=== PATIENT | female | born 1995 | race Caucasian/White ===

== ENCOUNTER → 2022-01-19 09:23 | Outpatient (CLI) | payer OTHER, SELFPAY ==
--- NOTE | 2022-01-19 09:25 | DI.US.S_ITS ---
PROCEDURE: US OB <= 14 WEEKS FETUS INDICATIONS: DATES OUTSIDE/PRIOR DATING DATA: Last menstrual period (LMP): November 06, 2021. LMP-based estimated date of delivery (NATIVIDAD): August 13, 2022. First dating scan (date): January 19, 2022. Estimated date of delivery (NATIVIDAD) from first dating scan: August 10, 2022. TECHNIQUE: Real-time scanning was performed of the fetus and maternal pelvic organs, with image documentation. Endovaginal scanning was also performed to better visualize the fetus and maternal ovaries. COMPARISON: None. FINDINGS: Embryo: Chestnut-rump length measures 4.2 cm, compatible with an 11 chest 8 Heart rate: 173 beats per minute Maternal organs: Ovaries not well seen. IMPRESSION: Early live single intrauterine gestation. We strive to produce accurate, complete, and clear reports of imaging services. To assist us in improving patient care, this report was composed using standard report templates and voice recognition software. Therefore, it may contain abnormal punctuation, insertions and/or omissions. Occasional wrong-word or sound-alike substitutions may occur. Though we review the report and make efforts to correct it, we do recommend that the report be read carefully in proper context to recognize any text inaccuracies. Dictated by: Gatito Ho M.D. on 01/19/2022 at 11:01 Approved by: Gatito Ho M.D. on 01/19/2022 at 11:07
== END ==
PROVIDERS: PCP Family Medicine; Referring Provider Family Medicine; Visit Provider Family Medicine
DX: Z34.81 Encounter for supervision of other normal pregnancy, first trimester (principal)
CPT/HCPCS: 76801; 76817

== ENCOUNTER → 2022-01-28 15:33 | Outpatient (CLI) | payer OTHER, SELFPAY ==
[2022-01-28 17:34] LABS: Add Manual Diff / Slide Review NO; Basophils Absolute Auto 0 /uL (0-100); Basophils Percent Auto 0.3 % (0-2); Eosinophils Absolute Auto 100 /uL (0-450); Eosinophils Percent Auto 1.1 % (2-4); Hematocrit 39.4 % (36-46); Hemoglobin 14.2 g/dL (12.0-16.0); Lymphocytes Absolute Auto 2000 /uL (1100-4500); Mean Corpuscular Hemoglobin 30.9 PG (26-34); Mean Corpuscular Volume 85.9 fL (80-100); Monocytes Absolute Auto 400 /uL (0-900); Monocytes Percent Auto 5.3 % (3-14); Neutrophils Absolute Auto 5800 /uL (1500-7000); Neutrophils Percent Auto 69.3 % (50-75); Platelet Count 268 X10^3/uL (150-400); Red Blood Cell Count 4.59 X10^6/uL (4.0-5.2); Red Cell Distribution Width 13.5 % (11.6-14.8); White Blood Cell Count 8.3 X10^3/uL (4.5-11.0)
[2022-01-28 19:24] LABS: Appearance Urine UA CLEAR; Bilirubin Urine UA NEGATIVE (NEGATIVE); Color Urine UA YELLOW; Glucose Urine UA NEGATIVE (Negative); Ketones Urine UA TRACE (NEGATIVE); Leukocyte Esterase Urine UA NEGATIVE (NEGATIVE); Nitrite Urine UA NEGATIVE (Negative); Occult Blood Urine UA NEGATIVE (Negative); Protein Urine UA NEGATIVE (Negative); Specific Gravity Urine UA 1.025 (1.000-1.035); Urobilinogen Urine UA 0.2 E.U./dL (0.2)
[2022-01-28 19:35] LABS: pH Urine UA 5.5 (4.5-8.0)
[2022-01-29 06:11] LABS: RPR Screen Non Reactive (Non Reactive)
[2022-01-29 07:22] LABS: Varicella IgG Antibody 202 index (Immune >165)
[2022-01-31 17:12] LABS: Hepatitis B Surface Antigen NEGATIVE s/c (NEGATIVE); Rubella Antibody IgG 14.6 IU/mL (>15)
[2022-01-31 17:59] LABS: HIV 1 & 2 Ab/Ag 4th Gen Combo NEGATIVE (NEGATIVE); Hep C Virus Ab w/Reflex Quant NEGATIVE s/c (NEGATIVE)
== END ==
PROVIDERS: PCP Family Medicine; Referring Provider Family Medicine; Visit Provider Family Medicine
DX: Z34.80 Encounter for supervision of other normal pregnancy, unspecified trimester (principal)
CPT/HCPCS: 36415; 80055; 81003; 86787; 86803; 86850; 86900; 86901; 87086; 87389

== ENCOUNTER → 2022-03-18 08:03 | Outpatient (CLI) | payer OTHER, SELFPAY ==
--- NOTE | 2022-03-18 08:04 | DI.US.S_ITS ---
PROCEDURE: US OB >= 14 WEEKS FETUS INDICATIONS: ANATOMY OUTSIDE/PRIOR DATING DATA: Last menstrual period (LMP): November 06, 2021. LMP-based estimated date of delivery (NAT[facility]IDAD): August 13, 2022. First dating scan (date and location): January 19, 2022. [facility]. Estimated date of delivery (NAT[facility]AD) from first dating scan: August 10, 2022. TECHNIQUE: Real-time scanning was performed of the fetus, with image documentation and biometric measurements. Endovaginal scanning: Not performed COMPARISON: None. FINDINGS: General: A single living intrauterine gestation is present. Presentation: Vertex. Placenta: Placental position is posterior , without previa. Amniotic fluid index: 10.1 cm, normal range is 5-24 cm. heart rate: 158 beats per minute. Maternal cervical canal: 5.4 cm long. Normal lower limit is 2.5 cm. biometrics: Biparietal diameter: 4.4 cm, 19 weeks, 3 days Head circumference: 16.6 cm, 19 weeks, 2 days Abdominal circumference: 13.9 cm, 19 weeks, 2 days Femur length: 3.0 cm, 19 weeks, 3 days Clinically estimated gestational age: 19 weeks 2 days Composite gestational age from present scan: 19 weeks 3 days Estimated weight and percentile: 287 g, 49% Anatomic survey: Neuro: Ventricles are non-dilated at less than 10 mm. Cisterna magna is normal at 3-11 mm. Cerebellum is normal in size and morphology. Nuchal skin fold: Normal at less than 6 mm between 14-21 weeks gestational age. Face: Nose and lips, facial profile are normal. Spine: No evidence for spina bifida. Heart: 4-chambered heart is present, with normal ventricular outflow tracts. Diaphragm: Diaphragm is intact. Stomach: Left-sided stomach is present. Kidneys: No hydronephrosis. Normal is less than 5 mm in 2nd trimester, less than 7 mm in 3rd trimester. Cord: 3-vessel cord has orthotopic insertion. Bladder: Normal in size. Extremities: All 4 extremities identified. IMPRESSION: 1. Single live intrauterine gestation with a composite gestational age of 19 weeks 3 days which is concordant with dates by initial scan. 2. No sonographic anatomic abnormalities. We strive to produce accurate, complete, and clear reports of imaging services. To assist us in improving patient care, this report was composed using standard report templates and voice recognition software. Therefore, it may contain abnormal punctuation, insertions and/or omissions. Occasional wrong-word or sound-alike substitutions may occur. Though we review the report and make efforts to correct it, we do recommend that the report be read carefully in proper context to recognize any text inaccuracies. Dictated by: Gisselle Thomas M.D. on 03/18/2022 at 10:24 Approved by: Gisselle Thomas M.D. on 03/18/2022 at 10:37
== END ==
PROVIDERS: PCP Family Medicine; Referring Provider Family Medicine; Visit Provider Family Medicine
DX: Z36.89 Encounter for other specified antenatal screening (principal); Z3A.19 19 weeks gestation of pregnancy
CPT/HCPCS: 76811

== ENCOUNTER → 2022-04-25 10:12 | Outpatient (CLI) | payer OTHER, SELFPAY | PROVIDERS: PCP Family Medicine; Visit Provider Family Medicine | DX: N89.8 Other specified noninflammatory disorders of vagina (principal); O26.892 Other specified pregnancy related conditions, second trimester; Z3A.24 24 weeks gestation of pregnancy | CPT/HCPCS: 87210 ==

== ENCOUNTER 2022-08-01 10:30 | Outpatient (RCR) | payer OTHER, SELFPAY ==
--- NOTE | 2022-06-09 20:00 | PT.OIE ---
Current Diagnoses Stiffness of unspecified hip, not elsewhere classified (06/09/22) Low back pain, unspecified (06/09/22) Stress incontinence (female) (male) (06/09/22) Lower abdominal pain, unspecified (06/09/22) Past Medical History (Last Reviewed 04/25/22 @ 11:45 by Marlin Montez DO) Headache Migraines (~2011) Past Surgical History (Last Reviewed 04/25/22 @ 11:45 by Marlin Montez DO) Anesthesia History of oral surgery (~2008) Visit Care Team Role Provider Type Camila Plata DO Family Provider Non-Staff Primary Care Provider Specialty: Family Practice Address: [address] [facility], [place], [address] Email: Estee Barroso MD Attending Provider Physician Referring Provider Specialty: Family Practice Address: [address] [place] [address], [id number] Email: [email or web address] Physical Therapy Initial Evaluation PT-OP-A Visit Information Start: 06/02/22 17:51 Freq: Status: Active Protocol: Document 06/09/22 08:14 LRN (Rec: 06/09/22 09:05 LRN [id number]) Out-Patient Physical Therapy Visit Information Visit Information Visit Type Initial Evaluation Visit Note Pre-auth 6 visits to date. Visit Start Time 08:15 Visit Stop Time 09:00 Total Visit Minutes 45 Visit Number 1/6 Evaluation Information Evaluation Date 06/09/22 Precautions Precautions 7 months . PT-OP-B Current Condition Start: 06/02/22 17:51 Freq: Status: Active Protocol: Document 06/09/22 08:14 LRN (Rec: 06/09/22 09:05 LRN [id number]) Current Condition History of Current Condition Onset Date 3 months ago, was 4 months with 2nd child Current Complaints Urinary incontinence with sneezing. History of Current Condition Pt developed stress incontinence during 2nd pregancy 4 months ago ( currently 7 mos , 30 weeks). Pt was in [place] when condition started and it was not felt she needed PT. Pt returned to [facility] (9 months ago), then 2 months later became with 2nd . Pt spouse is in the . Pt complaines of feeling a drop of urine with sneezing or activity. She does not wear pads and is able to identify when having urinary leakage. She currently manages by squeezing her legs together to prevent leakage. Additionally she reports pain in the R anterior hip region that she reports feels liike round lig pain when baby moves. Her pain is sharp in nature. She is trying to stay active and does Pilates 2x/week on the floor. Prior Treatments and Tests None Developmental History Developmental History Pt had vaginal of her son, first 15 months ago. She reports no complications. Treatment Goals Patient/Caregiver Goals Pt goal is to not leak when sneezing. Decrease her LBP and anterior pelvic/abdominal pain. Prior Functional Status Baseline Function- ADL's Independent Baseline Function- Mobility Independent Baseline Function- Other No urinary leakage before or after her first . Current Functional Impairments (Reported) Functional Limitations- ADL's 7 months . Urinary leakge with strong cough or sneeze, and vigorous activity. Feeling of pelvic heaviness/ pressure and falling out with standing. Trigger of running water. 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 Has 3-4 hrs of sitting and then is on social media. PT-OP-C Subjective Start: 06/02/22 17:51 Freq: Status: Active Protocol: Document 06/09/22 08:14 LRN (Rec: 06/09/22 09:05 LRN [id number]) Patient Questionnaires Pelvic Pain and Urgency/Frequency Patient Symptom Scale Pelvic Pain Score 11 OP-PT Pain Assessment Pain Assessment Grid Paper Pain Assessment Grid Completed Yes Location Low back and buttocks Pain Location Details Low back and buttocks Description Aching Anterior lower abdomen Pain Location Details Lower abdomen at the level of the pubic bone and ASIS Description Sharp Description- Other With certain movements Frequency Intermittent PT-OP-I Pelvic Floor Start: 06/02/22 17:51 Freq: Status: Active Protocol: Document 06/09/22 08:14 LRN (Rec: 06/09/22 09:05 LRN [id number]) Pelvic Floor Assessment Urine Urinary Symptoms Dribbling After Urination,Pain Other Urinary Symptoms Few time in past few weeks dribbling after urination. Having round ligament pain and low back pain extending from tailbone to lateral hips R>L. Mainly notices it when picking up 15 month old son Ibrahima. Leakage Size Small Leakage Cause Sneeze Voiding Frequency 12+/day Nocturia 1-2x Pads Used In 24 Hours None Bowel Bowel Surgery No Bowel Movement Frequency 2-3 Craven Stool Chart Type 1-7 4 Craven Stool Chart Comments Stool types 4-5 PT-OP-J Posture/Palpation/Skin Start: 06/02/22 17:51 Freq: Status: Active Protocol: Document 06/09/22 08:14 LRN (Rec: 06/09/22 09:05 LRN [id number]) Posture Evaluation Position Standing Head/C-Spine Posture Neutral Position T-Spine Posture Neutral L-Spine Posture Increased Lordosis,Shifted Left Pelvis Posture Anteriorly Tilted Weight Distribution Balanced Knee Posture (L) Genu Valgus,(R) Genu Valgus Ankle/Foot Posture (R) Calcaneal Eversion Foot Arch (R) Low Arch Comments Posture Comments Wide stance. Palpation Assessment Location Lower abdomen Palpation Location Lower abdomen above pubic bone Palpation Findings Tenderness Pubic Symphysis Palpation Location Pubic Symphysis Palpation Findings Tenderness Palpation Details Mild separation noted. External PF Palpation Location External PF Palpation Details No tenderness posterior at coccyx and around vagina and anus. PT-OP-K Range of Motion Start: 06/02/22 17:51 Freq: Status: Active Protocol: Document 06/09/22 08:14 LRN (Rec: 06/09/22 09:05 LRN [id number]) Lumbar Spine Range of Motion Lumbar Spine Active Degrees Testing Position Standing Flexion 80 Extension 10 Rotation Left 20 Rotation Right 10 Lateral Flexion Left 22 Lateral Flexion Right 18 Comments Trunk flex is 80 deg's with 40 deg's hip flexion Trunk ext is 10 deg's with 10 deg's hip ext. Hip Goniometric Range of Motion Hip Right Passive Testing Position Supine Straight Leg Raise 80 Abduction 50 Internal Rotation 45 External Rotation 85 Left Passive Testing Position Supine Straight Leg Raise 68 Abduction 50 Internal Rotation 70 External Rotation 75 PT-OP-M Strength Start: 06/02/22 17:51 Freq: Status: Active Protocol: Document 06/09/22 08:14 LRN (Rec: 06/09/22 09:05 LRN [id number]) Trunk Strength Trunk Manual Muscle Testing Testing Position Supine Core Stabilization Pt is not able to maintain core stability with testing of hip flexion strength, demonstrating decreased trunk rot strength/stability. Hip Strength Hip Manual Muscle Testing Right Adduction 3 Fair Comments Strength is 5/5 except as indicated above. Deferred testing of extension due to pillow not available. Left Flexion (L2) 4 Good Comments Strength is 5/5 except as indicated above. Deferred testing of extension due to pillow not available. PT-OP-Q Treatments Start: 06/02/22 17:51 Freq: Status: Active Protocol: Document 06/09/22 08:14 LRN (Rec: 06/09/22 09:05 LRN [id number]) Manual Therapy Treatment Soft Tissue Mobilization Iliopsoas Body Location R iliopsoas: Approximation of L3-5 & Lesser tubercle of femur Mobilization Type Myofascial Release,Sustained Pressure Body Position Supine Self-Care/Home Management Treatment Education Other Education Discussed results of evaluation, goals, and plan of care (POC). Pt agreeable to goals and POC. PT-OP-T Assessment and Plan Start: 06/02/22 17:51 Freq: Status: Active Protocol: Document 06/09/22 08:14 LRN (Rec: 06/09/22 09:05 LRN [id number]) Physical Therapy Assessment Rehab Potential Rehabilitation Potential Good Evaluation Complexity Number of Personal Factors/Comorbidities 1-2 Number of Body Systems Impaired 4 or More Clinical Presentation at Evaluation Evolving Impairments Impairments Activity Tolerance,Pain, Posture,ROM,Soft Tissue Mobility,Strength,Transfers Goals Four Impairment Pain in LB and hips, R>L Short Term Goal (STG) Pt will demonstrate symmetry and balance in her Illiosacral region. STG Duration 07/08/22 Senior Living Goal (LTG) Decrease reported pain in LB and hips. LTG Duration 09/07/22 Three Impairment Decreased core stability Impairment Pt is not able to maintain a stable core with movement of her LE's, priimarily with hip flex & extension. Short Term Goal (STG) Pt will be educated in pelvic stabilization ex's with a decrease in anterior abdominal /pubic pain. STG Duration 07/08/22 Process Equipment Operator Goal (LTG) Pt will be able to maintain a stable core with lifting of her legs against gravity. LTG Duration 09/07/22 Two Impairment Urinary stress incontinence Impairment Urinary incontinence with strong cough or sneeze, and vigorous activity. Short Term Goal (STG) Pt will be educated in Kegel ex's in isolation of substitute muscles and with aggrevator activities. STG Duration 06/24/22 Senior Living Goal (LTG) Pt will be able to maintain continence with a strong cough , sneeze or with appropriate vigorous activity. LTG Duration 09/07/22 One Impairment Pt lacks appropriate self care knowledge and HEP. Short Term Goal (STG) Pt will be educated in postural changes associated with and proper body mechanics for ADLS. STG Duration 07/01/22 Senior Living Goal (LTG) Pt will be educated in HEP of core stab, and mobility exercises to help her manage her ongoing . LTG Duration 09/07/22 Assessment Summary Assessment Pt presents with insidious onset of stress incontinence 7 months into her 2nd . She is having increased frequency of urination and urinary leakage with with strong cough or sneeze, and vigorous activity. She appears to be drinking enough fluids and is having normal stool types that can sometimes be more loose in nature. She does take magnesium that is probably helping her to maintain a good stool type 4. She is also experiencing low back pain and anterior abdominal/symphysis pubis pain that appears to be associated to her current , contributing to her PF dysfunction and will most likely hinder her rehabilitation progress; therefore it will be important to address and treat her LBP and abdominal pain. She demonatrates poor body mechanics with movements, especially with lifting her 15 month old son. She is also beginning to show postural changes associated to her that has potential to hinder her rehab progress as well; therefore it is expected that the pt will need further visits past her approved 6 visits to address her changes associated with her progressing in order to stabilize her PF. Pt will benefit from skilled physical therapy to improve her level of continence, address her abdominal and low back pain to decrease her PF dysfunction and eduacate the patient in proper body mechanics and posture to minimize core dysfunction and pain for daily activities. Physical Therapy Plan Frequency and Duration Frequency of Treatment 1x/Week Plan of Care Start Date 06/09/22 Plan of Care End Date 09/07/22 Therapeutic Interventions Therapeutic Interventions Home Exercise Program,Joint Mobilizations,Manual Therapy, Neuromuscular Re-education, Patient/Caregiver Education, Self-Care/Home Management,Soft Tissue Mobilization,Taping, Therapeutic Activities, Therapeutic Exercises Modalities Cold Pack/Ice Massage Next Visit Focus/Plan Next Note Type Treatment Note Next Visit Plan Pt to complete pain rating for back, abdomen and hips. I/S pt in trunk stretch for L lateral shift. Assess Hip Ext strength HEP: Resisted hip AB for pub pain. Core Stab. General stretches, & hip stretches (IR-R, ER & Hamstring-L). Strengthening R hip AD (if not painful) and L hip flexion. Pt education in posture expectations & proper body mechanics. Manual therapy: sacral balancing, Pub symphysis reduction, tight abdominals on R side. Modality: Ice as needed.
--- NOTE | 2022-06-20 16:30 | PT.OTN ---
Current Diagnoses Stiffness of unspecified hip, not elsewhere classified (06/20/22) Low back pain, unspecified (06/20/22) Stress incontinence (female) (male) (06/20/22) Lower abdominal pain, unspecified (06/20/22) Physical Therapy Treatment Note PT-OP-A Visit Information Start: 06/02/22 17:51 Freq: Status: Active Protocol: Document 06/20/22 15:15 LRN (Rec: 06/20/22 16:25 LRN [id number]) Out-Patient Physical Therapy Visit Information Visit Information Visit Type Treatment Note Visit Note Pre-auth 6 visits to date. Visit Start Time 15:15 Visit Stop Time 16:04 Total Visit Minutes 49 Visit Number 2/ Evaluation Information Evaluation Date 06/09/22 Precautions Precautions 7 months . PT-OP-B Current Condition Start: 06/02/22 17:51 Freq: Status: Active Protocol: Document 06/09/22 08:14 LRN (Rec: 06/09/22 09:05 LRN [id number]) Current Condition History of Current Condition Onset Date 3 months ago, was 4 months with 2nd child Current Complaints Urinary incontinence with sneezing. History of Current Condition Pt developed stress incontinence during 2nd pregancy 4 months ago ( currently 7 mos , 30 weeks). Pt was in [place] when condition started and it was not felt she needed PT. Pt returned to [facility] (9 months ago), then 2 months later became with 2nd . Pt spouse is in the . Pt complaines of feeling a drop of urine with sneezing or activity. She does not wear pads and is able to identify when having urinary leakage. She currently manages by squeezing her legs together to prevent leakage. Additionally she reports pain in the R anterior hip region that she reports feels liike round lig pain when baby moves. Her pain is sharp in nature. She is trying to stay active and does Pilates 2x/week on the floor. Prior Treatments and Tests None Developmental History Developmental History Pt had vaginal of her son, first 15 months ago. She reports no complications. Treatment Goals Patient/Caregiver Goals Pt goal is to not leak when sneezing. Decrease her LBP and anterior pelvic/abdominal pain. Prior Functional Status Baseline Function- ADL's Independent Baseline Function- Mobility Independent Baseline Function- Other No urinary leakage before or after her first . Current Functional Impairments (Reported) Functional Limitations- ADL's 7 months . Urinary leakge with strong cough or sneeze, and vigorous activity. Feeling of pelvic heaviness/ pressure and falling out with standing. Trigger of running water. 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 Has 3-4 hrs of sitting and then is on social media. PT-OP-C Subjective Start: 06/02/22 17:51 Freq: Status: Active Protocol: Document 06/20/22 15:15 LRN (Rec: 06/20/22 16:25 LRN [id number]) OP-PT Subjective Patient Comments Patient Comments No change. Anterior pelvic/hip pain is 3/10, posterior tailbone pain is 6/10. Saw marine underwriter and her baby's head was lower left and her kicking feet is in the lower right. Today pain in the R gluteal region. PT-OP-I Pelvic Floor Start: 06/02/22 17:51 Freq: Status: Active Protocol: Document 06/09/22 08:14 LRN (Rec: 06/09/22 09:05 LRN [id number]) Pelvic Floor Assessment Urine Urinary Symptoms Dribbling After Urination,Pain Other Urinary Symptoms Few time in past few weeks dribbling after urination. Having round ligament pain and low back pain extending from tailbone to lateral hips R>L. Mainly notices it when picking up 15 month old son Ibrahima. Leakage Size Small Leakage Cause Sneeze Voiding Frequency 12+/day Nocturia 1-2x Pads Used In 24 Hours None Bowel Bowel Surgery No Bowel Movement Frequency 2-3 [place] Stool Chart Type 1-7 4 [place] Stool Chart Comments Stool types 4-5 PT-OP-J Posture/Palpation/Skin Start: 06/02/22 17:51 Freq: Status: Active Protocol: Document 06/09/22 08:14 LRN (Rec: 06/09/22 09:05 LRN [id number]) Posture Evaluation Position Standing Head/C-Spine Posture Neutral Position T-Spine Posture Neutral L-Spine Posture Increased Lordosis,Shifted Left Pelvis Posture Anteriorly Tilted Weight Distribution Balanced Knee Posture (L) Genu Valgus,(R) Genu Valgus Ankle/Foot Posture (R) Calcaneal Eversion Foot Arch (R) Low Arch Comments Posture Comments Wide stance. Palpation Assessment Location Lower abdomen Palpation Location Lower abdomen above pubic bone Palpation Findings Tenderness Pubic Symphysis Palpation Location Pubic Symphysis Palpation Findings Tenderness Palpation Details Mild separation noted. External PF Palpation Location External PF Palpation Details No tenderness posterior at coccyx and around vagina and anus. PT-OP-K Range of Motion Start: 06/02/22 17:51 Freq: Status: Active Protocol: Document 06/09/22 08:14 LRN (Rec: 06/09/22 09:05 LRN [id number]) Lumbar Spine Range of Motion Lumbar Spine Active Degrees Testing Position Standing Flexion 80 Extension 10 Rotation Left 20 Rotation Right 10 Lateral Flexion Left 22 Lateral Flexion Right 18 Comments Trunk flex is 80 deg's with 40 deg's hip flexion Trunk ext is 10 deg's with 10 deg's hip ext. Hip Goniometric Range of Motion Hip Right Passive Testing Position Supine Straight Leg Raise 80 Abduction 50 Internal Rotation 45 External Rotation 85 Left Passive Testing Position Supine Straight Leg Raise 68 Abduction 50 Internal Rotation 70 External Rotation 75 PT-OP-M Strength Start: 06/02/22 17:51 Freq: Status: Active Protocol: Document 06/09/22 08:14 LRN (Rec: 06/09/22 09:05 LRN [id number]) Trunk Strength Trunk Manual Muscle Testing Testing Position Supine Core Stabilization Pt is not able to maintain core stability with testing of hip flexion strength, demonstrating decreased trunk rot strength/stability. Hip Strength Hip Manual Muscle Testing Right Adduction 3 Fair Comments Strength is 5/5 except as indicated above. Deferred testing of extension due to pillow not available. Left Flexion (L2) 4 Good Comments Strength is 5/5 except as indicated above. Deferred testing of extension due to pillow not available. PT-OP-Q Treatments Start: 06/02/22 17:51 Freq: Status: Active Protocol: Document 06/20/22 15:15 LRN (Rec: 06/20/22 16:25 LRN [id number]) Therapeutic Exercises Supine Exercises BKFO Supine Exercise Name BKFO - HEP Side bilateral Equipment Used Lev 2 Reps/Minutes 15x LE roll outs Supine Exercise Name LE Roll out>in to neutral - HEP Side bilateral Reps/Minutes 15x Comments Cuing to keep from doing active AD/IR Standing Exercises Wall squats Standing Exercise Name Wall squats - HEP Reps/Minutes 10x Comments Extra time taken to determine max positioning/mvmt Other Exercises 4 pt Cat/Camel Other Exercise Name Cat/Camel - HEP Reps/Minutes 10x Comments Extra time for training to tuck tailbone when arching 4 pt TA Other Exercise Name TA tightening - HEP Reps/Minutes 5SH x 10 Comments Extra time taken to cue for neutral spine during TA contraction Manual Therapy Treatment Soft Tissue Mobilization Low back Body Location QL, Upper gluteals, Piriformis Mobilization Type Strumming,Trigger Point Release Intensity/Depth Moderate Body Position Prone on Pillow Comments Tight on R side. Pop heard as pt was getting out of the position, pt reported felt good. Self-Care/Home Management Treatment Education Patient Education Posture Other Education Pt education in posture expectations, proper body mechanics with transfers and ADLs to include lifting son, reaching for toys on ground and holding son. Handouts issued for changes in posture with , ADLs. Reviewed anatomy and location of TA and PF muscles and used model to educate pt regarding Pubic Symphysis and how posturing (hips in wide AB) can effect stability of Pubic symphysis. Activities Self-Care/Home Management Activities Issued & reviewed HEP: Cat/ Camel, 4 pt TA tightening, Wall squats with TB around knee for hip ER, I/S in Supine BKFO with TB resistance , and roll in (to neutral)/ outs. Issued Lev 2 TB. PT-OP-T Assessment and Plan Start: 06/02/22 17:51 Freq: Status: Active Protocol: Document 06/20/22 15:15 LRN (Rec: 06/20/22 16:25 LRN [id number]) Physical Therapy Assessment Goals Four Impairment Pain in LB and hips, R>L Short Term Goal (STG) Pt will demonstrate symmetry and balance in her Illiosacral region. STG Duration 07/08/22 Usp Goal (LTG) Decrease reported pain in LB and hips. LTG Duration 09/07/22 Three Impairment Decreased core stability Impairment Pt is not able to maintain a stable core with movement of her LE's, priimarily with hip flex & extension. Short Term Goal (STG) Pt will be educated in pelvic stabilization ex's with a decrease in anterior abdominal /pubic pain. 06/20/22: Started 4 pt TA tightening and resisted BKFO strengthening. STG Duration 07/08/22 (06/20/22: Progressed ) National Account Executive Goal (LTG) Pt will be able to maintain a stable core with lifting of her legs against gravity. LTG Duration 09/07/22 Two Impairment Urinary stress incontinence Impairment Urinary incontinence with strong cough or sneeze, and vigorous activity. Short Term Goal (STG) Pt will be educated in Kegel ex's in isolation of substitute muscles and with aggrevator activities. STG Duration 06/24/22 Usp Goal (LTG) Pt will be able to maintain continence with a strong cough , sneeze or with appropriate vigorous activity. LTG Duration 09/07/22 One Impairment Pt lacks appropriate self care knowledge and HEP. Short Term Goal (STG) Pt will be educated in postural changes associated with and proper body mechanics for ADLS. STG Duration 07/01/22 (06/20/22: MET GOAL) National Account Executive Goal (LTG) Pt will be educated in HEP of core stab, and mobility exercises to help her manage her ongoing . LTG Duration 09/07/22 (06/20/22: Progressed ) Assessment Summary Assessment Pt with stress urinary incontinence, 4 mos with 2nd child, pubic and SIJ pain. Pt may have self mobilized sacrum when coming out of prone on pregancy position. Pt needed cuing for TA tightening prior to transfers. Pt's posture in standing is with trunk shift to right today, possibly due to shifting of baby. Prone on pillow, sacrum is R rotated/L Sidebent (elevated R side), corrected rotation after STM. Physical Therapy Plan Frequency and Duration Frequency of Treatment 1x/Week Plan of Care Start Date 06/09/22 Plan of Care End Date 09/07/22 Next Visit Focus/Plan Next Note Type Treatment Note Next Visit Plan Assess Hip Ext strength HEP: Review: Resisted supine hip AB(BKFO) for pub pain and TA tightening. Progress Core Stab. Add general stretches, & hip stretches (IR -R, ER & Hamstring-L). Strengthening R hip AD (if not painful) and L hip flexion. Manual therapy: sacral balancing, Pub symphysis reduction, tight abdominals on R side. Modality: Ice as needed.
--- NOTE | 2022-07-05 17:28 | PT.OTN ---
Current Diagnoses Stiffness of unspecified hip, not elsewhere classified (07/05/22) Low back pain, unspecified (07/05/22) Stress incontinence (female) (male) (07/05/22) Lower abdominal pain, unspecified (07/05/22) Physical Therapy Treatment Note PT-OP-A Visit Information Start: 06/02/22 17:51 Freq: Status: Active Protocol: Document 07/05/22 08:11 LRN (Rec: 07/05/22 09:02 LRN [id number]) Out-Patient Physical Therapy Visit Information Visit Information Visit Type Treatment Note Visit Note Pre-auth 6 visits Visit Start Time 08:15 Visit Stop Time 09:01 Total Visit Minutes 45 Visit Number 3/ Evaluation Information Evaluation Date 06/09/22 Precautions Precautions 7 months on 06/09/22. PT-OP-B Current Condition Start: 06/02/22 17:51 Freq: Status: Active Protocol: Document 06/09/22 08:14 LRN (Rec: 06/09/22 09:05 LRN [id number]) Current Condition History of Current Condition Onset Date 3 months ago, was 4 months with 2nd child Current Complaints Urinary incontinence with sneezing. History of Current Condition Pt developed stress incontinence during 2nd pregancy 4 months ago ( currently 7 mos , 30 weeks). Pt was in [place] when condition started and it was not felt she needed PT. Pt returned to [facility] (9 months ago), then 2 months later became with 2nd . Pt spouse is in the . Pt complaines of feeling a drop of urine with sneezing or activity. She does not wear pads and is able to identify when having urinary leakage. She currently manages by squeezing her legs together to prevent leakage. Additionally she reports pain in the R anterior hip region that she reports feels liike round lig pain when baby moves. Her pain is sharp in nature. She is trying to stay active and does Pilates 2x/week on the floor. Prior Treatments and Tests None Developmental History Developmental History Pt had vaginal of her son, first 15 months ago. She reports no complications. Treatment Goals Patient/Caregiver Goals Pt goal is to not leak when sneezing. Decrease her LBP and anterior pelvic/abdominal pain. Prior Functional Status Baseline Function- ADL's Independent Baseline Function- Mobility Independent Baseline Function- Other No urinary leakage before or after her first . Current Functional Impairments (Reported) Functional Limitations- ADL's 7 months . Urinary leakge with strong cough or sneeze, and vigorous activity. Feeling of pelvic heaviness/ pressure and falling out with standing. Trigger of running water. 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 Has 3-4 hrs of sitting and then is on social media. PT-OP-C Subjective Start: 06/02/22 17:51 Freq: Status: Active Protocol: Document 07/05/22 08:11 LRN (Rec: 07/05/22 09:02 LRN [id number]) OP-PT Subjective Patient Comments Patient Comments States she hasn't noticed her sciatic pain as much, not as often, but when it does come on it is as painful as usual. 35 weeks gestation in 3 days. Having a little pubic pain. Pain with sciatica when moving after getting up from sitting for awhile. Round lig pain with walking. PT-OP-I Pelvic Floor Start: 06/02/22 17:51 Freq: Status: Active Protocol: Document 06/09/22 08:14 LRN (Rec: 06/09/22 09:05 LRN [id number]) Pelvic Floor Assessment Urine Urinary Symptoms Dribbling After Urination,Pain Other Urinary Symptoms Few time in past few weeks dribbling after urination. Having round ligament pain and low back pain extending from tailbone to lateral hips R>L. Mainly notices it when picking up 15 month old son Ibrahima. Leakage Size Small Leakage Cause Sneeze Voiding Frequency 12+/day Nocturia 1-2x Pads Used In 24 Hours None Bowel Bowel Surgery No Bowel Movement Frequency 2-3 [place] Stool Chart Type 1-7 4 [place] Stool Chart Comments Stool types 4-5 PT-OP-J Posture/Palpation/Skin Start: 06/02/22 17:51 Freq: Status: Active Protocol: Document 06/09/22 08:14 LRN (Rec: 06/09/22 09:05 LRN [id number]) Posture Evaluation Position Standing Head/C-Spine Posture Neutral Position T-Spine Posture Neutral L-Spine Posture Increased Lordosis,Shifted Left Pelvis Posture Anteriorly Tilted Weight Distribution Balanced Knee Posture (L) Genu Valgus,(R) Genu Valgus Ankle/Foot Posture (R) Calcaneal Eversion Foot Arch (R) Low Arch Comments Posture Comments Wide stance. Palpation Assessment Location Lower abdomen Palpation Location Lower abdomen above pubic bone Palpation Findings Tenderness Pubic Symphysis Palpation Location Pubic Symphysis Palpation Findings Tenderness Palpation Details Mild separation noted. External PF Palpation Location External PF Palpation Details No tenderness posterior at coccyx and around vagina and anus. PT-OP-K Range of Motion Start: 06/02/22 17:51 Freq: Status: Active Protocol: Document 06/09/22 08:14 LRN (Rec: 06/09/22 09:05 LRN [id number]) Lumbar Spine Range of Motion Lumbar Spine Active Degrees Testing Position Standing Flexion 80 Extension 10 Rotation Left 20 Rotation Right 10 Lateral Flexion Left 22 Lateral Flexion Right 18 Comments Trunk flex is 80 deg's with 40 deg's hip flexion Trunk ext is 10 deg's with 10 deg's hip ext. Hip Goniometric Range of Motion Hip Right Passive Testing Position Supine Straight Leg Raise 80 Abduction 50 Internal Rotation 45 External Rotation 85 Left Passive Testing Position Supine Straight Leg Raise 68 Abduction 50 Internal Rotation 70 External Rotation 75 PT-OP-M Strength Start: 06/02/22 17:51 Freq: Status: Active Protocol: Document 06/09/22 08:14 LRN (Rec: 06/09/22 09:05 LRN [id number]) Trunk Strength Trunk Manual Muscle Testing Testing Position Supine Core Stabilization Pt is not able to maintain core stability with testing of hip flexion strength, demonstrating decreased trunk rot strength/stability. Hip Strength Hip Manual Muscle Testing Right Adduction 3 Fair Comments Strength is 5/5 except as indicated above. Deferred testing of extension due to pillow not available. Left Flexion (L2) 4 Good Comments Strength is 5/5 except as indicated above. Deferred testing of extension due to pillow not available. PT-OP-Q Treatments Start: 06/02/22 17:51 Freq: Status: Active Protocol: Document 07/05/22 08:11 LRN (Rec: 07/05/22 09:02 LRN [id number]) Therapeutic Exercises Supine Exercises LE roll outs Supine Exercise Name BKFO position: LE Roll out/in w/TA tight and PF contraction - HEP Side bilateral Reps/Minutes 15x Comments Cuing for coordination of breathing/PF >< and active AD/ IR Sidelying Exercises Aggrevator training Sidelying Exercise Name PF >< before cough Side bilateral Reps/Minutes 5x each side Clamshell Sidelying Exercise Name Clamshell with TA/PF/breathing contraction Side bilateral Reps/Minutes 15x Comments Cuing to coordinate PF/ breathing. Sitting Exercises Hip ER stretch Sitting Exercise Name Fig 4 stretch Side bilateral Reps/Minutes 60 SH x 1 each Resisted BKFO Sitting Exercise Name Resisted Vik BKFO Reps/Minutes 15 x 2 Comments Cuing to Tighten TA TA tightening Sitting Exercise Name TA tightening Reps/Minutes 10SH x 10 Standing Exercises Wall squats Standing Exercise Name Wall squats - HEP Reps/Minutes 15x 2 Comments Extra time taken to determine proper positioning/mvmt. cuing for hip AB Other Exercises Child's pose Other Exercise Name Child's Pose w/knees together Reps/Minutes x 1 4 pt Cat/Camel Other Exercise Name Cat/Camel - HEP Reps/Minutes 10x Comments Extra time for training to tuck tailbone when arching 4 pt TA Other Exercise Name TA tightening - HEP Reps/Minutes 10SH x 10 Comments Extra time taken to cue for neutral spine during TA contraction Manual Therapy Treatment Soft Tissue Mobilization Sacral balancing Body Location Sacral balancing (PA L sacral sulcus & TRAVON, L sacral shear, inferior mob) Mobilization Type Myofascial Release,Sustained Pressure Intensity/Depth Moderate Body Position Supine Self-Care/Home Management Treatment Education Other Education Educated pt in sitting posture to limit having her toddler between knees, but to the side of legs. PT-OP-T Assessment and Plan Start: 06/02/22 17:51 Freq: Status: Active Protocol: Document 07/05/22 08:11 LRN (Rec: 07/05/22 09:02 LRN [id number]) Physical Therapy Assessment Goals Four Impairment Pain in LB and hips, R>L Short Term Goal (STG) Pt will demonstrate symmetry and balance in her Illiosacral region. 07/05/22: Sacrum in L rotation as assessed in 4-pt. STG Duration 07/08/22 Detention Goal (LTG) Decrease reported pain in LB and hips. 07/05/22: Pt hasn't noticed her sciatic pain as much, not as often. LTG Duration 09/07/22 (07/05/22: Progressing) Three Impairment Decreased core stability Impairment Pt is not able to maintain a stable core with movement of her LE's, priimarily with hip flex & extension. Short Term Goal (STG) Pt will be educated in pelvic stabilization ex's with a decrease in anterior abdominal /pubic pain. 06/20/22: Started 4 pt TA tightening and resisted BKFO strengthening. STG Duration 07/08/22 (06/20/22: Progressed ) Lithographic Retoucher Apprentice Goal (LTG) Pt will be able to maintain a stable core with lifting of her legs against gravity. LTG Duration 09/07/22 Two Impairment Urinary stress incontinence Impairment Urinary incontinence with strong cough or sneeze, and vigorous activity. Short Term Goal (STG) Pt will be educated in Kegel ex's in isolation of substitute muscles and with aggrevator activities. 07/05/22: Pt educated in isolation of substitute ms and I/S to do Kegel before activities of urinary leakage. STG Duration 06/24/22 (: MET GOAL) Lithographic Retoucher Apprentice Goal (LTG) Pt will be able to maintain continence with a strong cough , sneeze or with appropriate vigorous activity. 07/05/22: Loss of urinary continence with light cough. LTG Duration 09/07/22 One Impairment Pt lacks appropriate self care knowledge and HEP. Short Term Goal (STG) Pt will be educated in postural changes associated with and proper body mechanics for ADLS. STG Duration 07/01/22 (06/20/22: MET GOAL) Lithographic Retoucher Apprentice Goal (LTG) Pt will be educated in HEP of core stab, and mobility exercises to help her manage her ongoing . LTG Duration 09/07/22 (06/20/22: Progressed ) Assessment Summary Assessment Pt reports being 35 weeks gestation in 3 days, due date is 08/12/22. Pt was not able to maintain continence with a light cough in sidelie. Pt able to maintain continence with supine hip AB(BKFO). + response to exercise with reduction in pain. Physical Therapy Plan Frequency and Duration Frequency of Treatment 1x/Week Plan of Care Start Date 06/09/22 Plan of Care End Date 09/07/22 Next Visit Focus/Plan Next Note Type Treatment Note Next Visit Plan Expect pt able to continue 3 more visits with due date 08/13. Assess response to sacral balancing. Check hip ext strength Manual therapy: sacral balancing, Add general stretches, & hip stretches (IR -R, ER & Hamstring-L). Progress Core strengthening. Start gentle Strengthening R hip AD (if not painful) and L hip flexion. Monitor for Pub symphysis reduction & tightness abdominals on R side. Modality: Ice as needed.
--- NOTE | 2022-07-18 17:50 | PT.OTN ---
Current Diagnoses Stiffness of unspecified hip, not elsewhere classified (07/18/22) Low back pain, unspecified (07/18/22) Stress incontinence (female) (male) (07/18/22) Lower abdominal pain, unspecified (07/18/22) Physical Therapy Treatment Note PT-OP-A Visit Information Start: 06/02/22 17:51 Freq: Status: Active Protocol: Document 07/18/22 08:18 LRN (Rec: 07/18/22 10:06 LRN [id number]) Out-Patient Physical Therapy Visit Information Visit Information Visit Type Treatment Note Visit Note Pre-auth 6 visits Visit Start Time 08:18 Visit Stop Time 09:00 Total Visit Minutes 42 Visit Number 01/05 Evaluation Information Evaluation Date 06/09/22 Precautions Precautions 7 months on 06/09/22. PT-OP-B Current Condition Start: 06/02/22 17:51 Freq: Status: Active Protocol: Document 06/09/22 08:14 LRN (Rec: 06/09/22 09:05 LRN [id number]) Current Condition History of Current Condition Onset Date 3 months ago, was 4 months with 2nd child Current Complaints Urinary incontinence with sneezing. History of Current Condition Pt developed stress incontinence during 2nd pregancy 4 months ago ( currently 7 mos , 30 weeks). Pt was in [place] when condition started and it was not felt she needed PT. Pt returned to [facility] (9 months ago), then 2 months later became with 2nd . Pt spouse is in the . Pt complaines of feeling a drop of urine with sneezing or activity. She does not wear pads and is able to identify when having urinary leakage. She currently manages by squeezing her legs together to prevent leakage. Additionally she reports pain in the R anterior hip region that she reports feels liike round lig pain when baby moves. Her pain is sharp in nature. She is trying to stay active and does Pilates 2x/week on the floor. Prior Treatments and Tests None Developmental History Developmental History Pt had vaginal of her son, first 15 months ago. She reports no complications. Treatment Goals Patient/Caregiver Goals Pt goal is to not leak when sneezing. Decrease her LBP and anterior pelvic/abdominal pain. Prior Functional Status Baseline Function- ADL's Independent Baseline Function- Mobility Independent Baseline Function- Other No urinary leakage before or after her first . Current Functional Impairments (Reported) Functional Limitations- ADL's 7 months . Urinary leakge with strong cough or sneeze, and vigorous activity. Feeling of pelvic heaviness/ pressure and falling out with standing. Trigger of running water. 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 Has 3-4 hrs of sitting and then is on social media. PT-OP-C Subjective Start: 06/02/22 17:51 Freq: Status: Active Protocol: Document 07/18/22 08:18 LRN (Rec: 07/18/22 10:06 LRN [id number]) OP-PT Subjective Patient Comments Patient Comments Baby feels low, so feels pressure on pubic bone. Has had a cold, so not really feeling pain. No recent LBP during sickness. PT-OP-I Pelvic Floor Start: 06/02/22 17:51 Freq: Status: Active Protocol: Document 06/09/22 08:14 LRN (Rec: 06/09/22 09:05 LRN [id number]) Pelvic Floor Assessment Urine Urinary Symptoms Dribbling After Urination,Pain Other Urinary Symptoms Few time in past few weeks dribbling after urination. Having round ligament pain and low back pain extending from tailbone to lateral hips R>L. Mainly notices it when picking up 15 month old son Ibrahima. Leakage Size Small Leakage Cause Sneeze Voiding Frequency 12+/day Nocturia 1-2x Pads Used In 24 Hours None Bowel Bowel Surgery No Bowel Movement Frequency 2-3 [place] Stool Chart Type 1-7 4 [place] Stool Chart Comments Stool types 4-5 PT-OP-J Posture/Palpation/Skin Start: 06/02/22 17:51 Freq: Status: Active Protocol: Document 06/09/22 08:14 LRN (Rec: 06/09/22 09:05 LRN [id number]) Posture Evaluation Position Standing Head/C-Spine Posture Neutral Position T-Spine Posture Neutral L-Spine Posture Increased Lordosis,Shifted Left Pelvis Posture Anteriorly Tilted Weight Distribution Balanced Knee Posture (L) Genu Valgus,(R) Genu Valgus Ankle/Foot Posture (R) Calcaneal Eversion Foot Arch (R) Low Arch Comments Posture Comments Wide stance. Palpation Assessment Location Lower abdomen Palpation Location Lower abdomen above pubic bone Palpation Findings Tenderness Pubic Symphysis Palpation Location Pubic Symphysis Palpation Findings Tenderness Palpation Details Mild separation noted. External PF Palpation Location External PF Palpation Details No tenderness posterior at coccyx and around vagina and anus. PT-OP-K Range of Motion Start: 06/02/22 17:51 Freq: Status: Active Protocol: Document 06/09/22 08:14 LRN (Rec: 06/09/22 09:05 LRN [id number]) Lumbar Spine Range of Motion Lumbar Spine Active Degrees Testing Position Standing Flexion 80 Extension 10 Rotation Left 20 Rotation Right 10 Lateral Flexion Left 22 Lateral Flexion Right 18 Comments Trunk flex is 80 deg's with 40 deg's hip flexion Trunk ext is 10 deg's with 10 deg's hip ext. Hip Goniometric Range of Motion Hip Right Passive Testing Position Supine Straight Leg Raise 80 Abduction 50 Internal Rotation 45 External Rotation 85 Left Passive Testing Position Supine Straight Leg Raise 68 Abduction 50 Internal Rotation 70 External Rotation 75 PT-OP-M Strength Start: 06/02/22 17:51 Freq: Status: Active Protocol: Document 06/09/22 08:14 LRN (Rec: 06/09/22 09:05 LRN [id number]) Trunk Strength Trunk Manual Muscle Testing Testing Position Supine Core Stabilization Pt is not able to maintain core stability with testing of hip flexion strength, demonstrating decreased trunk rot strength/stability. Hip Strength Hip Manual Muscle Testing Right Adduction 3 Fair Comments Strength is 5/5 except as indicated above. Deferred testing of extension due to pillow not available. Left Flexion (L2) 4 Good Comments Strength is 5/5 except as indicated above. Deferred testing of extension due to pillow not available. PT-OP-Q Treatments Start: 06/02/22 17:51 Freq: Status: Active Protocol: Document 07/18/22 08:18 LRN (Rec: 07/18/22 10:06 LRN [id number]) Therapeutic Exercises Sitting Exercises C. AROM stretch Sitting Exercise Name C. Rot, SB, Circles stretch Side bilateral Piriformis stretch Sitting Exercise Name Piriformis stretch - knee to opp shldr Side bilateral Reps/Minutes 10SH x 6. Hip ADD stretch Sitting Exercise Name V-sit at Edge of Plinth w/fwd lean Side bilateral Reps/Minutes 10SH x 6. Hip ER stretch Sitting Exercise Name Fig 4 stretch-alternating sides Side bilateral Reps/Minutes 10 SH x 6 each, extra set on L side Standing Exercises Trunk SB/Rot Standing Exercise Name AROM gentle stretch Reps/Minutes 5-10x each Shoulder rolls Standing Exercise Name Shoulder rolls fwd/bkwd Side bilateral Reps/Minutes 10x 2 fwd/bkwd Arm circles Standing Exercise Name Arm circles fwd/bkwd Side bilateral Reps/Minutes 15x 2 each Comments Cuing for TA/PF tightening and breathing. Wall squats Standing Exercise Name Wall squats - HEP Reps/Minutes 15x 2 Comments Cuing for breathwork and TA/PF tightening. PT-OP-T Assessment and Plan Start: 06/02/22 17:51 Freq: Status: Active Protocol: Document 07/18/22 08:18 LRN (Rec: 07/18/22 10:06 LRN [id number]) Physical Therapy Assessment Goals Four Impairment Pain in LB and hips, R>L Short Term Goal (STG) Pt will demonstrate symmetry and balance in her Illiosacral region. 07/05/22: Sacrum in L rotation as assessed in 4-pt. STG Duration 07/08/22 Detention Goal (LTG) Decrease reported pain in LB and hips. 07/05/22: Pt hasn't noticed her sciatic pain as much, not as often. 07/18/22: Having L hip pain ( ASIS) from baby kicking. No LBP. LTG Duration 09/07/22 (07/18/22: No LBP, Lhip pain) Three Impairment Decreased core stability Impairment Pt is not able to maintain a stable core with movement of her LE's, priimarily with hip flex & extension. Short Term Goal (STG) Pt will be educated in pelvic stabilization ex's with a decrease in anterior abdominal /pubic pain. 06/20/22: Started 4 pt TA tightening and resisted BKFO strengthening. STG Duration 07/08/22 (06/20/22: Progressed ) Project Management Engineer Goal (LTG) Pt will be able to maintain a stable core with lifting of her legs against gravity. LTG Duration 09/07/22 Two Impairment Urinary stress incontinence Impairment Urinary incontinence with strong cough or sneeze, and vigorous activity. Short Term Goal (STG) Pt will be educated in Kegel ex's in isolation of substitute muscles and with aggrevator activities. 07/05/22: Pt educated in isolation of substitute ms and I/S to do Kegel before activities of urinary leakage. STG Duration 06/24/22 (: MET GOAL) Detention Goal (LTG) Pt will be able to maintain continence with a strong cough , sneeze or with appropriate vigorous activity. 07/05/22: Loss of urinary continence with light cough. LTG Duration 09/07/22 (07/18/22: MET GOAL ) One Impairment Pt lacks appropriate self care knowledge and HEP. Short Term Goal (STG) Pt will be educated in postural changes associated with and proper body mechanics for ADLS. STG Duration 07/01/22 (06/20/22: MET GOAL) Detention Goal (LTG) Pt will be educated in HEP of core stab, and mobility exercises to help her manage her ongoing . 07/18/22: HEP: sitting Hip ER & Piriformis stretch, I/S in hip ADD stretch. General neck, shoulders, ankle, and trunk mobility ex's. Reviewed previous ex's of Wall slide, hands and knees cat/cow, PF contraction with transfers. LTG Duration 09/07/22 (07/18/22: Progressed) Assessment Summary Assessment Pt is 36 weeks gestation. + response to sacral balancing with no complaints of LBP. No pain in groin with today's stretches or standing ex's. Pt is not having back pain; therefore if she continues to do well on her home program recheck next visit for possible DC to home program. Physical Therapy Plan Frequency and Duration Frequency of Treatment 1x/Week Plan of Care Start Date 06/09/22 Plan of Care End Date 09/07/22 Next Visit Focus/Plan Next Note Type Treatment Note Next Visit Plan Possible DC to HEP next visit; pt may be able to continue 1- 2 more visits with due date . If pt doing well next visit and goals met, DC to HEP. Check core stability. Manual therapy: sacral balancing if needed. Review response to general stretches, & hip stretches (IR-R, ER & Hamstring-L). Progress Core strengthening if needed. Start gentle Strengthening R hip AD (if not painful) and L hip flexion. Modality: Ice as needed.
--- NOTE | 2022-08-01 17:31 | PT.OTN ---
Current Diagnoses Stiffness of unspecified hip, not elsewhere classified (08/01/22) Low back pain, unspecified (08/01/22) Stress incontinence (female) (male) (08/01/22) Lower abdominal pain, unspecified (08/01/22) Physical Therapy Treatment Note PT-OP-A Visit Information Start: 06/02/22 17:51 Freq: Status: Active Protocol: Document 08/01/22 10:32 LRN (Rec: 08/01/22 11:20 LRN [id number]) Out-Patient Physical Therapy Visit Information Visit Information Visit Type Treatment Note Visit Note Pre-auth 6 visits Visit Start Time 10:32 Visit Stop Time 11:15 Total Visit Minutes 43 Visit Number 5/6 Evaluation Information Evaluation Date 06/09/22 Precautions Precautions 7 months on 06/09/22. PT-OP-B Current Condition Start: 06/02/22 17:51 Freq: Status: Active Protocol: Document 06/09/22 08:14 LRN (Rec: 06/09/22 09:05 LRN [id number]) Current Condition History of Current Condition Onset Date 3 months ago, was 4 months with 2nd child Current Complaints Urinary incontinence with sneezing. History of Current Condition Pt developed stress incontinence during 2nd pregancy 4 months ago ( currently 7 mos , 30 weeks). Pt was in [place] when condition started and it was not felt she needed PT. Pt returned to [facility] (9 months ago), then 2 months later became with 2nd . Pt spouse is in the . Pt complaines of feeling a drop of urine with sneezing or activity. She does not wear pads and is able to identify when having urinary leakage. She currently manages by squeezing her legs together to prevent leakage. Additionally she reports pain in the R anterior hip region that she reports feels liike round lig pain when baby moves. Her pain is sharp in nature. She is trying to stay active and does Pilates 2x/week on the floor. Prior Treatments and Tests None Developmental History Developmental History Pt had vaginal of her son, first 15 months ago. She reports no complications. Treatment Goals Patient/Caregiver Goals Pt goal is to not leak when sneezing. Decrease her LBP and anterior pelvic/abdominal pain. Prior Functional Status Baseline Function- ADL's Independent Baseline Function- Mobility Independent Baseline Function- Other No urinary leakage before or after her first . Current Functional Impairments (Reported) Functional Limitations- ADL's 7 months . Urinary leakge with strong cough or sneeze, and vigorous activity. Feeling of pelvic heaviness/ pressure and falling out with standing. Trigger of running water. 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 Has 3-4 hrs of sitting and then is on social media. PT-OP-C Subjective Start: 06/02/22 17:51 Freq: Status: Active Protocol: Document 08/01/22 10:32 LRN (Rec: 08/01/22 11:20 LRN [id number]) OP-PT Subjective Patient Comments Patient Comments Having false labor with a lot of contractions in the front. Pub is sore from baby being so low. Discomfort in pubs today. Has been doing circles , A/P and bouncing on the Medicine ball. LBP has resolved and front abdominal pain is now just discomfort. No complaints of urinary incontinence. PT-OP-I Pelvic Floor Start: 06/02/22 17:51 Freq: Status: Active Protocol: Document 06/09/22 08:14 LRN (Rec: 06/09/22 09:05 LRN [id number]) Pelvic Floor Assessment Urine Urinary Symptoms Dribbling After Urination,Pain Other Urinary Symptoms Few time in past few weeks dribbling after urination. Having round ligament pain and low back pain extending from tailbone to lateral hips R>L. Mainly notices it when picking up 15 month old son Ibrahima. Leakage Size Small Leakage Cause Sneeze Voiding Frequency 12+/day Nocturia 1-2x Pads Used In 24 Hours None Bowel Bowel Surgery No Bowel Movement Frequency 2-3 Fisher Stool Chart Type 1-7 4 Fisher Stool Chart Comments Stool types 4-5 PT-OP-J Posture/Palpation/Skin Start: 06/02/22 17:51 Freq: Status: Active Protocol: Document 06/09/22 08:14 LRN (Rec: 06/09/22 09:05 LRN [id number]) Posture Evaluation Position Standing Head/C-Spine Posture Neutral Position T-Spine Posture Neutral L-Spine Posture Increased Lordosis,Shifted Left Pelvis Posture Anteriorly Tilted Weight Distribution Balanced Knee Posture (L) Genu Valgus,(R) Genu Valgus Ankle/Foot Posture (R) Calcaneal Eversion Foot Arch (R) Low Arch Comments Posture Comments Wide stance. Palpation Assessment Location Lower abdomen Palpation Location Lower abdomen above pubic bone Palpation Findings Tenderness Pubic Symphysis Palpation Location Pubic Symphysis Palpation Findings Tenderness Palpation Details Mild separation noted. External PF Palpation Location External PF Palpation Details No tenderness posterior at coccyx and around vagina and anus. PT-OP-K Range of Motion Start: 06/02/22 17:51 Freq: Status: Active Protocol: Document 06/09/22 08:14 LRN (Rec: 06/09/22 09:05 LRN [id number]) Lumbar Spine Range of Motion Lumbar Spine Active Degrees Testing Position Standing Flexion 80 Extension 10 Rotation Left 20 Rotation Right 10 Lateral Flexion Left 22 Lateral Flexion Right 18 Comments Trunk flex is 80 deg's with 40 deg's hip flexion Trunk ext is 10 deg's with 10 deg's hip ext. Hip Goniometric Range of Motion Hip Right Passive Testing Position Supine Straight Leg Raise 80 Abduction 50 Internal Rotation 45 External Rotation 85 Left Passive Testing Position Supine Straight Leg Raise 68 Abduction 50 Internal Rotation 70 External Rotation 75 PT-OP-M Strength Start: 06/02/22 17:51 Freq: Status: Active Protocol: Document 06/09/22 08:14 LRN (Rec: 06/09/22 09:05 LRN [id number]) Trunk Strength Trunk Manual Muscle Testing Testing Position Supine Core Stabilization Pt is not able to maintain core stability with testing of hip flexion strength, demonstrating decreased trunk rot strength/stability. Hip Strength Hip Manual Muscle Testing Right Adduction 3 Fair Comments Strength is 5/5 except as indicated above. Deferred testing of extension due to pillow not available. Left Flexion (L2) 4 Good Comments Strength is 5/5 except as indicated above. Deferred testing of extension due to pillow not available. PT-OP-Q Treatments Start: 06/02/22 17:51 Freq: Status: Active Protocol: Document 08/01/22 10:32 LRN (Rec: 08/01/22 11:20 LRN [id number]) Therapeutic Exercises Supine Exercises SLR Supine Exercise Name SLR Side bilateral Reps/Minutes 3x Comments Loss of core stability with lifting of L leg. Sidelying Exercises 1/2 body contraction Sidelying Exercise Name Review-Knee to elbow/Oblique stretch Side bilateral Reps/Minutes 10-15x Comments Good breath work. Clamshell Sidelying Exercise Name Review-Clamshell with TA/PF/ breathing contraction Side bilateral Reps/Minutes 15x Comments Cuing to coordinate PF/ breathing and controlling R>L Sitting Exercises Piriformis stretch Sitting Exercise Name Review- Piriformis stretch - knee to opp shldr Side bilateral Reps/Minutes 10SH x 6. Comments L side tighter than R side Hip ADD stretch Sitting Exercise Name Did child's pose instead Hip ER stretch Sitting Exercise Name Review-Fig 4 stretch- alternating sides Side bilateral Reps/Minutes 10 SH x 6 each, extra set on L side Resisted BKFO Sitting Exercise Name Review-Resisted Vik BKFO Reps/Minutes 15 x 2 Comments Cuing to Tighten TA Standing Exercises Wall squats Standing Exercise Name Wall squats - review HEP Reps/Minutes 15x 1 Comments Cuing for breathwork and TA/PF tightening. Other Exercises 4 pt Clamshell Other Exercise Name Added HEP: 4 pt clamshell R leg lift Side bilateral Comments Pt able to lift L leg with pelvis stabilized. Child's pose Other Exercise Name Review-Child's Pose w/knees together Reps/Minutes x 1 Self-Care/Home Management Treatment Education Other Education Educated and discussed with pt proper body mechanics, posture, positioning post- for protection of low back, hips, & SI. Educated & discussed pelvic/LB stabilization of TA's, PF contractions post- when MD gives okay for protection of LB, anterior hips and SI's. Activities Self-Care/Home Management Activities Issued handout for proper side -lying for protection of low back. Verbal instruction in 4 pt R leg clamshell lift (bent knee leg lifts). PT-OP-T Assessment and Plan Start: 06/02/22 17:51 Freq: Status: Active Protocol: Document 08/01/22 10:32 LRN (Rec: 08/01/22 11:20 LRN [id number]) Physical Therapy Assessment Goals Four Impairment Pain in LB and hips, R>L Short Term Goal (STG) Pt will demonstrate symmetry and balance in her Illiosacral region. 07/05/22: Sacrum in L rotation as assessed in 4-pt. 08/01/22: Sacrum in neutral in 4-pt. STG Duration 07/08/22 (08/01/22: MET GOAL) [facility] Goal (LTG) Decrease reported pain in LB and hips. 07/05/22: Pt hasn't noticed her sciatic pain as much, not as often. 07/18/22: Having L hip pain ( ASIS) from baby kicking. No LBP. 08/01/22: No LBP/L ASIS hip pain. LTG Duration 09/07/22 (08/01/22: MET GOAL ) Three Impairment Decreased core stability Impairment Pt is not able to maintain a stable core with movement of her LE's, priimarily with hip flex & extension. Short Term Goal (STG) Pt will be educated in pelvic stabilization ex's with a decrease in anterior abdominal /pubic pain. 06/20/22: Started 4 pt TA tightening and resisted BKFO strengthening. 08/01/22: No c/o anterior hipo abdominal/pubic pain. Added Sidelie TA/Clamshell, reviewed sit TA. STG Duration 07/08/22 (08/01/22: MET GOAL) [facility] Goal (LTG) Pt will be able to maintain a stable core with lifting of her legs against gravity. LTG Duration 09/07/22 (: MET GOAL) Two Impairment Urinary stress incontinence Impairment Urinary incontinence with strong cough or sneeze, and vigorous activity. Short Term Goal (STG) Pt will be educated in Kegel ex's in isolation of substitute muscles and with aggrevator activities. 07/05/22: Pt educated in isolation of substitute ms and I/S to do Kegel before activities of urinary leakage. STG Duration 06/24/22 (: MET GOAL) Tag And Label Cutter Goal (LTG) Pt will be able to maintain continence with a strong cough , sneeze or with appropriate vigorous activity. 07/05/22: Loss of urinary continence with light cough. LTG Duration 09/07/22 (07/18/22: MET GOAL ) One Impairment Pt lacks appropriate self care knowledge and HEP. Short Term Goal (STG) Pt will be educated in postural changes associated with and proper body mechanics for ADLS. STG Duration 07/01/22 (06/20/22: MET GOAL) Tag And Label Cutter Goal (LTG) Pt will be educated in HEP of core stab, and mobility exercises to help her manage her ongoing . 07/18/22: HEP: sitting Hip ER & Piriformis stretch, I/S in hip ADD stretch. General neck, shoulders, ankle, and trunk mobility ex's. Reviewed previous ex's of Wall slide, hands and knees cat/cow, PF contraction with transfers. LTG Duration 09/07/22 (08/01/22: MET GOAL) Assessment Summary Assessment Pt reports being 38 weeks gestation. She is not having any low back or abdominal pain and is now feeling only pressure in her lower abdominal regional that she can minimize with exercise. Pt demonstrated weakness of pelvic L rot, but has been has a good understanding of ex's to improve stability. She has a HEP to continue until childbirth. Pt has met all her goals. Physical Therapy Plan Discharge Physical Therapy Discharge Reasons Goals Met Discharge Comments Pt is ready to continue with her HEP with pain controlled through exercise. The pt has weakness with pelvic L rotation; therefore may need physical therapy post- for core/pelvic stabilization. Thank you for your referral .
== END 2022-08-03 13:54 | disposition home or self-care (01) ==
LOC: PHYS 10:30
PROVIDERS: Family Provider Family Medicine; PCP Family Medicine; Referring Provider Family Medicine; Visit Provider Family Medicine
DX: N39.3 Stress incontinence (female) (male) (principal); M25.659 Stiffness of unspecified hip, not elsewhere classified; R10.30 Lower abdominal pain, unspecified; M54.50 Low back pain, unspecified
CPT/HCPCS: 97110; 97140; 97162; 97535